=== PATIENT | male | born 1975 | race Caucasian/White ===

== ENCOUNTER 2019-01-10 14:39 | Emergency (ER) | payer SELFPAY ==
[~2019-01-10] VITALS: Ht 170.2 cm; Wt 81.5 kg
[~2019-01-10 14:39] MED LIST: IBUP-1542 PO; PENI500T PO; UDTYLC PO
[2019-01-10 14:44] VITALS: BP 154/87; PULSE 65; RESP 16; Ht 170.2 cm; Wt 81.5 kg
--- NOTE | 2019-01-10 15:45 | ERD ---
ER Documentation Chief Complaint Chief Complaint abscess to left buttocks x 1 month HPI This is a 43-year-old male with history of recurrent abscesses presents to the ED with an abscess to his left buttock times 2 months. Patient states he has been popping his abscesses at home which seems to help them. He states he started to develop new abscesses one month ago which have since been progressively getting bigger. He reports pain when sitting or when using the bathroom. He denies any active drainage. He states he was seen at an outside clinic 2 days ago and given oral Bactrim and Keflex with other IM antibiotics. 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 Patient denies any fevers, chills, abdominal pain, nausea, vomiting or any other complaints. ROS All systems reviewed and are negative except as per history of present illness. Medications Home Meds Active Scripts Acetaminophen-Codeine* (Tylenol-Codeine* Liq) [id number] Elix, 5 ML PO Q6H PRN for PAIN, #30 ML Prov:WYATT DICKSON NP 06/29/15 Ibuprofen* (Motrin*) 600 Mg Tab, 600 MG PO Q6H PRN for PAIN AND OR ELEVATED TEMP, #30 Prov:WYATT DICKSON NP 06/29/15 Penicillin V Potassium* (Penicillin V K*) 500 Mg Tab, 500 MG PO Q6 for 10 Days, TAB Prov:WYATT DICKSON NP 06/29/15 Allergies Allergies: Coded Allergies: No Known Allergy (Unverified , 06/29/15) PMhx/Soc History of Surgery: No Anesthesia Reaction: No Hx Neurological Disorder: No Hx Respiratory Disorders: No Hx Cardiac Disorders: No Hx Psychiatric Problems: No Hx Miscellaneous Medical Probl: No Hx Alcohol Use: No Hx Substance Use: No Hx Tobacco Use: No Physical Exam Vitals Vital Signs Date Temp Pulse Resp B/P (MAP) Pulse Ox O2 O2 Flow FiO2 Time Delivery Rate 01/10/19 97.7 65 16 154/87 97 14:44 (109) Physical Exam Const: No acute distress Head: Atraumatic Eyes: Normal Conjunctiva ENT: Normal External Ears, Nose and Mouth. Neck: Full range of motion. No meningismus. Resp: Clear to auscultation bilaterally Cardio: Regular rate and rhythm, no murmurs Abd: Soft, non tender, non distended. Normal bowel sounds Skin: + 2 small abscesses to his left buttock area near the anal verge, both are less than 1 cm. Mild tenderness to palpation and induration. No fluctuance. No active drainage. Ext: No cyanosis, or edema Neur: Awake and alert Psych: Normal Mood and Affect Procedures/MDM This is a 43-year-old male presents to the ED with recurrent gluteal abscesses. Physical exam does confirm 2 small gluteal abscesses on the left however they do not meet incision and drainage criteria at this time. There is no fluctuance and only mild induration. I discussed with patient that he should be taking his oral antibiotics that were prescribed to him by the clinic a few days ago. I also recommended sitz baths for 10 minutes a few times a day to help drain out any pus although I did not see any on exam today. He has no evidence of sepsis, deep space infection, or foreign body. Discussed with him that he does not need emergent surgery for his abscesses. If symptoms not improve after antibiotics and sitz baths, and he is welcome to follow-up at the one of the community clinics that were provided to him for possible referral to a general surgeon. He understands and agrees with plan. Strict return precautions were given. Blood Pressure Assessment: Patient's blood pressure was elevated (>120/80) but appears stable without evidence of hypertension emergency or urgency. The patient was counseled about the risks of hypertension and urged to pursue outpatient monitoring and therapy within a week with their primary care physician. Departure Diagnosis: Primary Impression: Abscess, gluteal, left Condition: Stable Patient Instructions: Abscess, Antiobiotic Treatment Only Referrals: [facility] YOU HAVE RECEIVED A MEDICAL SCREENING EXAM AND THE RESULTS INDICATE THAT YOU DO NOT HAVE A CONDITION THAT REQUIRES URGENT TREATMENT IN THE EMERGENCY DEPARTMENT. FURTHER EVALUATION AND TREATMENT OF YOUR CONDITION CAN WAIT UNTIL YOU ARE SEEN IN YOUR DOCTORS OFFICE WITHIN THE NEXT 1-2 DAYS. IT IS YOUR RESPONSIBILITY TO MAKE AN APPOINTMENT FOR FOLOW-UP CARE. IF YOU HAVE A PRIMARY DOCTOR --you should call your primary doctor and schedule and appointment IF YOU DO NOT HAVE A PRIMARY DOCTOR YOU CAN CALL OUR PHYSICIAN REFERRAL HOTLINE AT . IF YOU CAN NOT AFFORD TO SEE A PHYSICIAN YOU CAN CHOSE FROM THE FOLLOWING [facility] INSTITUTIONS: [facility] [address] [place] [address] [facility] [address] [place] [address] [facility] [address] [place] [address] Additional Instructions: Your abscess does not need any incision or drainage today. I do recommend taking the antibiotics that were prescribed to you. I also recommend sitz bath for 10 minutes about 3 times a day. You do not need to see a surgeon emergently today however if symptoms do not improve after antibiotics and bath, I do recommend following up with the community clinic that was listed to you for referral to a surgeon. Return to the ED for any new or worsening symptoms. LUCITA MONTOYA PA-C Jan 10, 2019 15:45
== END 2019-01-10 15:38 | disposition home or self-care (01) ==
LOC: FTE 14:39
DX: L02.31 Cutaneous abscess of buttock (principal)
CPT/HCPCS: 99282

== ENCOUNTER 2019-05-16 09:08 | Emergency (ER) | payer MEDICAID, OTHER ==
[~2019-05-16] VITALS: Wt 80.0 kg
[2019-05-16] MEDS ORDERED: SOD CHLORIDE 0.9% 1,000 ML IV STA (09:35)
[2019-05-16] MEDS ORDERED: morphine 2 MG INJ IV STA (09:35)
[2019-05-16] MEDS ORDERED: ONDANSETRON 4 MG INJ IV STA (09:35)
[2019-05-16] MEDS ORDERED: DICYCLOMINE 20 MG INJ IM ONE (10:00)
[2019-05-16] MEDS ORDERED: IBUP-1542 PO (10:56)
[2019-05-16] MEDS ORDERED: ACET-141 PO (10:56)
[2019-05-16] MEDS ORDERED: SIME125C PO (10:57)
[2019-05-16] MEDS ORDERED: ONDA4TAB14 PO (10:57)
--- NOTE | 2019-05-16 10:58 | ERD ---
ER Documentation Chief Complaint Chief Complaint abd pain for the past 3 days. with no dysuria but constipation, morena/vom + HPI 43 year old male presents to ED complaining of abd pain x 3/4 days. He states the pain is located all around the abd. He reports the pain as 8/10 intensity and it feels as if he is bloated. He states the pain radiates to his back. He denies any fevers, chills, but does report Nausea without Vomiting. He has taken Advil with mild improvement of his pain. Past med hx: states similar episode 8 months ago in which resolved on its own denies other past med hx Surgeries: reports appendix removed ROS All systems reviewed and are negative except as per history of present illness. Medications Home Meds Active Scripts Ondansetron (Ondansetron Odt) 4 Mg Tab.rapdis, 4 MG PO Q6H PRN for NAUSEA AND/OR VOMITING, #10 TAB Prov:TED BOWMAN PA-C 05/16/19 Simethicone (Gas-X) 125 Mg Capsule, 125 MG PO Q6, #20 CAP Prov:TED BOWMAN PA-C 05/16/19 Ibuprofen* (Motrin*) 600 Mg Tab, 600 MG PO Q6H PRN for PAIN AND OR ELEVATED TEMP, #30 TAB Prov:TED BOWMAN PA-C 05/16/19 Acetaminophen* (Acetaminophen*) 500 MG Extra Strength Tablet, 500 MG PO Q4H PRN for PAIN AND OR ELEVATED TEMP, #30 TAB Prov:TED BOWMAN PA-C 05/16/19 Acetaminophen-Codeine* (Tylenol-Codeine* Liq) [id number] Elix, 5 ML PO Q6H PRN for PAIN, #30 ML Prov:WYATT DICKSON NP 06/29/15 Ibuprofen* (Motrin*) 600 Mg Tab, 600 MG PO Q6H PRN for PAIN AND OR ELEVATED TEMP, #30 Prov:WYATT DICKSON NP 06/29/15 Penicillin V Potassium* (Penicillin V K*) 500 Mg Tab, 500 MG PO Q6 for 10 Days, TAB Prov:WYATT DICKSON NP 06/29/15 Allergies Allergies: Coded Allergies: No Known Allergy (Unverified , 7/13/19) PMhx/Soc History of Surgery: Yes (APPENDECTOMY ) Anesthesia Reaction: No Hx Neurological Disorder: No Hx Respiratory Disorders: No Hx Cardiac Disorders: No Hx Psychiatric Problems: No Hx Miscellaneous Medical Probl: No Hx Alcohol Use: No Hx Substance Use: No Hx Tobacco Use: No Smoking Status: Never smoker FmHx Family History: No diabetes Physical Exam Vitals Vital Signs Date Temp Pulse Resp B/P (MAP) Pulse Ox O2 O2 Flow FiO2 Time Delivery Rate 05/16/19 98.7 86 18 125/76 98 Room Air 11:05 (92) 05/16/19 98.7 69 18 156/77 98 09:13 (103) Physical Exam Const: No acute distress Head: Atraumatic Eyes: Normal Conjunctiva ENT: Normal External Ears, Nose and Mouth. Neck: Full range of motion. No meningismus. Resp: Clear to auscultation bilaterally Cardio: Regular rate and rhythm, no murmurs Abd: Soft, bloated, nonspecific tenderness all around the abd. No rebound tenderness, no guarding. Normal bowel sounds. Incision gina present Skin: No petechiae or rashes Back: No midline or flank tenderness Ext: No cyanosis, or edema Neur: Awake and alert Psych: Normal Mood and Affect Result Diagram: 05/16/1942 05/16/19 0942 Results 24 hrs Laboratory Tests Test 05/16/19 09:42 05/16/19 09:43 White Blood Count 6.5 10^3/ul Red Blood Count 5.76 10^6/ul Hemoglobin 15.5 g/dl Hematocrit 47.9 % Mean Corpuscular Volume 83.2 fl Mean Corpuscular Hemoglobin 26.9 pg Mean Corpuscular Hemoglobin Concent 32.4 g/dl Red Cell Distribution Width 13.2 % Platelet Count 273 10^3/UL Mean Platelet Volume 9.7 fl Immature Granulocytes % 0.500 % Neutrophils % 57.3 % Lymphocytes % 27.4 % Monocytes % 10.5 % Eosinophils % 3.1 % Basophils % 1.2 % Nucleated Red Blood Cells % 0.0 /100WBC Immature Granulocytes # 0.030 10^3/ul Neutrophils # 3.7 10^3/ul Lymphocytes # 1.8 10^3/ul Monocytes # 0.7 10^3/ul Eosinophils # 0.2 10^3/ul Basophils # 0.1 10^3/ul Nucleated Red Blood Cells # 0.0 10^3/ul Sodium Level 140 mmol/L Potassium Level 4.5 mmol/L Chloride Level 105 mmol/L Carbon Dioxide Level 30 mmol/L Anion Gap 5 Blood Urea Nitrogen 12 mg/dl Creatinine 0.87 mg/dl Est Glomerular Filtrat Rate mL/min > 60 mL/min Glucose Level 100 mg/dl Calcium Level 9.4 mg/dl Total Bilirubin 0.3 mg/dl Direct Bilirubin 0.00 mg/dl Indirect Bilirubin 0.3 mg/dl Aspartate Amino Transf (AST/SGOT) 41 IU/L Alanine Aminotransferase (ALT/SGPT) 64 IU/L Alkaline Phosphatase 83 IU/L Total Protein 7.5 g/dl Albumin 4.1 g/dl Globulin 3.40 g/dl Albumin/Globulin Ratio 1.20 Lipase 62 U/L Urine Color YELLOW Urine Clarity CLEAR Urine pH 5.0 Urine Specific [place] 1.017 Urine Ketones NEGATIVE mg/dL Urine Nitrite NEGATIVE mg/dL Urine Bilirubin NEGATIVE mg/dL Urine Urobilinogen NEGATIVE mg/dL Urine Leukocyte Esterase NEGATIVE Kai/ul Urine Hemoglobin NEGATIVE mg/dL Urine Glucose NEGATIVE mg/dL Urine Total Protein NEGATIVE mg/dl Current Medications Medications Dose Sig/Callum Start Time Status Last (Trade) Ordered Route PRN Stop Time Admin Dose Reason Admin Sodium 1,000 ml @ Q1H STAT 05/16/19 DC 05/16/19 Chloride 1,000 mls/hr IV 09:35 09:48 05/16/19 10:34 Morphine 2 mg ONCE STAT 05/16/19 DC 05/16/19 Sulfate IV 09:35 09:49 (morphine) 05/16/19 09:37 Ondansetron 4 mg ONCE STAT 05/16/19 DC 05/16/19 HCl (Zofran IV 09:35 09:48 Inj) 05/16/19 09:37 Dicyclomine 20 mg ONCE ONCE 05/16/19 DC 05/16/19 HCl IM 10:00 10:08 (Bentyl) 05/16/19 10:01 Procedures/MDM ED COURSE: The patient was stable throughout ED course. I kept the patient informed of laboratory and diagnostic imaging results throughout the ED course. MEDICATIONS GIVEN: IV fluids, Zofran, morphine, Bentyl Patient tolerated medication well with no adverse reactions. Patient reported improvement in pain. MEDICAL DECISION MAKING: Patient is a 43 year old male presenting with all around abd pain x 3/4 days. He states that nothing makes his pain better or worse. On physical exam, Pt shows tenderness all around the abd without guarding or rebound tenderness. Pt was given IV fluids in the ED along with Zofran, Bentyl, and morphine. Pt stated that he felt much better afterwards. In addition,is abd tenderness had resolved. I have low suspicion for diverticulitis, cholecystitis, bowel perforation, toxic megacolon, pancreatitis, or any other emergent conditions at this time. Vital signs were reviewed. Patient is afebrile. Patient was not hypoxic. Patient was hemodynamically stable. Patient was told to follow up with primary care for further care and management. PRESCRIPTION: Gas-x, Zofran, motrin, Tylenol DISCHARGE: At this time, patient is stable for discharge and outpatient management. I have instructed the patient to follow-up with his/her primary care physician in 1-2 days. I have discussed with the patient the possibility of needing to see a specialist for further workup and imaging studies if symptoms persist. I have instructed the patient to promptly return to the ER for any new or worsening symptoms including increased pain, fever, nausea, vomiting, weakness or LOC. The patient expressed understanding of and agreement with this plan. All questions were answered. Home care instructions were provided. Disclaimer: Inadvertent spelling and grammatical errors are likely due to EHR/di ctation software use and do not reflect on the overall quality of patient care. Also, please note that the electronic time recorded on this note does not necessarily reflect the actual time of the patient encounter. Departure Diagnosis: Primary Impression: Abdominal pain Abdominal location: generalized Qualified Codes: R10.84 - Generalized abdominal pain Condition: Fair Patient Instructions: Abdominal Pain Referrals: COMM[facility]ITY CLINICS YOU HAVE RECEIVED A MEDICAL SCREENING EXAM AND THE RESULTS INDICATE THAT YOU DO NOT HAVE A CONDITION THAT REQUIRES URGENT TREATMENT IN THE EMERGENCY DEPARTMENT. FURTHER EVALUATION AND TREATMENT OF YOUR CONDITION CAN WAIT UNTIL YOU ARE SEEN IN YOUR DOCTORS OFFICE WITHIN THE NEXT 1-2 DAYS. IT IS YOUR RESPONSIBILITY TO MAKE AN APPOINTMENT FOR FOLOW-UP CARE. IF YOU HAVE A PRIMARY DOCTOR --you should call your primary doctor and schedule an appointment IF YOU DO NOT HAVE A PRIMARY DOCTOR YOU CAN CALL OUR PHYSICIAN REFERRAL HOTLINE AT IF YOU CAN NOT AFFORD TO SEE A PHYSICIAN YOU CAN CHOSE FROM THE FOLLOWING [facility] CLINICS [facility] [address] [facility] [address] [place] [facility] [address] [facility] [address] [facility] [address] [facility]. [facility]. [address] [facility]. [facility] YOU HAVE RECEIVED A MEDICAL SCREENING EXAM AND THE RESULTS INDICATE THAT YOU DO NOT HAVE A CONDITION THAT REQUIRES URGENT TREATMENT IN THE EMERGENCY DEPARTMENT. FURTHER EVALUATION AND TREATMENT OF YOUR CONDITION CAN WAIT UNTIL YOU ARE SEEN IN YOUR DOCTORS OFFICE WITHIN THE NEXT 1-2 DAYS. IT IS YOUR RESPONSIBILITY TO MAKE AN APPOINTMENT FOR FOLOW-UP CARE. IF YOU HAVE A PRIMARY DOCTOR --you should call your primary doctor and schedule and appointment IF YOU DO NOT HAVE A PRIMARY DOCTOR YOU CAN CALL OUR PHYSICIAN REFERRAL HOTLINE AT . IF YOU CAN NOT AFFORD TO SEE A PHYSICIAN YOU CAN CHOSE FROM THE FOLLOWING [facility]: [facility] [address] [place] [address] [facility] [address] [place] [address] [facility] [address] [place] [address] Additional Instructions: Call your primary care doctor TOMORROW for an appointment during the next 1-2 days.See the doctor sooner or return here if your condition worsens before your appointment time. TED BOWMAN PA-C May 16, 2019 10:58
[2019-05-16 11:05] VITALS: BP 125/76; PULSE 86; RESP 18
== END 2019-05-16 11:06 | disposition home or self-care (01) ==
LOC: FTE 09:08
DX: R10.84 Generalized abdominal pain (principal); R11.0 Nausea
CPT/HCPCS: 80053; 81003; 83690; 85025; J0500; J2270; J2405; J7030; 36415; 96361; 96372; 96374; 96375